=== PATIENT | male | born 1980 | race Caucasian/White ===

== ENCOUNTER 2017-10-14 21:49 | Emergency (ER) | payer OTHER ==
[~2017-10-14] VITALS: Ht 182.9 cm; Wt 113.8 kg
[~2017-10-14 21:49] MED LIST: WARF4TAB PO
[2017-10-14 21:51] VITALS: TEMP 36.8; Ht 182.9 cm; Wt 113.8 kg
[2017-10-14] MEDS ORDERED: SODIUM CHLORIDE 0.9% 1000ML 1,000 ML IV STA (22:05)
[2017-10-14] MEDS ORDERED: OPTIRAY 320 IV PRN (22:15)
[2017-10-14 22:33] LABS: ISTAT CREATININE 0.9 mg/dl (0.6-1.3); ISTAT HEMOGLOBIN 16.3 g/dl (14.0-18.0); ISTAT IONIZED CALCIUM 1.09 mmol/l (1.12-1.32)
[2017-10-14 22:36] LABS: BASO % 0.1 %; BASO ABS # 0.01 K/uL (0-0.2); COMPLETE YES; EOS % 0.5 %; HEMATOCRIT 46.9 % (42-52); IG% 0.2 %; LYMPH ABS # 1.06 K/uL (1.2-3.4); MEAN CELL VOLUME 93.4 fL (80-100); MEAN CORPUSCULAR HEMOGLOBIN 32.1 pg (25-34); MEAN CORPUSCULAR HGB CONC 34.3 g/dl (32-36); MEAN PLATELET VOLUME 9.2 fL (7.4-10.4); NEUT % 71.2 %; PLATELET COUNT 199 K/uL (130-400); RED BLOOD COUNT 5.02 M/uL (4.7-6.1); WHITE BLOOD COUNT 8.16 K/uL (4.8-10.8)
--- NOTE | 2017-10-14 22:36 | DIAGNOSTIC IMAGING REPORT ---
CHEST ONE VIEW PORTABLE HISTORY: 37 years-old Male Chest Pain acute atypical chest pain COMPARISON: Chest and rib radiographs 04/27/2016 TECHNIQUE: Portable upright AP view of the chest FINDINGS: Cardiac silhouette is within normal limits. No pneumothorax, pleural effusion, focal airspace consolidation or overt pulmonary edema. Bones of the chest appear grossly intact. IMPRESSION: No acute cardiopulmonary process. The above report was generated using voice recognition software. It may contain grammatical, syntax or spelling errors. Electronically signed by: Juan J Acuña M.D. 10/14/2017 10:35 PM Dictated Date/Time: 10/14/2017 10:34 PM
[2017-10-14 22:42] LABS: BLOOD UREA NITROGEN 12 mg/dl (7-18); BUN/CREATININE RATIO 12.2 (10-20); CALCIUM 8.9 mg/dl (8.5-10.1); CARBON DIOXIDE 26 mmol/L (21-32); CHLORIDE 101 mmol/L (98-107); CREATININE 0.99 mg/dl (0.60-1.40); GLUCOSE 101 mg/dl (70-99); SODIUM 133 mmol/L (136-145)
--- NOTE | 2017-10-14 22:54 | DIAGNOSTIC IMAGING REPORT ---
(CHEST FOR PE) ANGIO WITH CT DOSE: 703.72 mGy.cm HISTORY: 37 years-old Male presents with acute atypical chest pain TECHNIQUE: Multiple CTA images of the chest were obtained after the intravenous administration of 116 ml Optiray 320. certified hyperbaric technologist reports that the patient experienced nausea and vomiting after injection of the contrast. Coronal and sagittal MIPS were obtained from the axial data set and were submitted for review. A dose lowering technique was utilized adhering to the principles of ALARA. COMPARISON: CT chest 04/03/2010 and 05/05/2009. FINDINGS: CTA: Heart is normal in size without pericardial effusion. The thoracic aorta is normal in both course and caliber without aneurysm or dissection. Imaged great vessels are patent. There is suboptimal opacification of the pulmonary arterial tree secondary to contrast bolus timing. The lobar, segmental and subsegmental branches are not well seen. No central pulmonary embolus identified. CT CHEST: No dominant thyroid nodule. Mildly prominent left axillary lymph node measures 9 mm in short axis, nonspecific. No pathologic mediastinal or hilar adenopathy by CT size criteria. Pleural-parenchymal scarring of the apical posterior segment left upper lobe is redemonstrated, unchanged from comparison. There are additional smaller subsegmental linear pleural-based opacities of the bilateral lungs suggesting areas of atelectasis/scarring. No pneumothorax, pleural effusion or lobar airspace consolidation. Central airways are patent. The graft calcification of the spleen is noted. No acute abnormality of the imaged upper abdomen. Soft tissues are unremarkable. Bones appear intact. IMPRESSION: 1. Suboptimal evaluation of the pulmonary arterial tree secondary to contrast bolus timing. No central pulmonary embolus identified. 2. No lobar airspace consolidation to suggest pneumonia. 3. Pleural parenchymal scarring of the apical posterior segment left upper lobe redemonstrated. The above report was generated using voice recognition software. It may contain grammatical, syntax or spelling errors. Electronically signed by: Juan J Acuña M.D. 10/14/2017 10:52 PM Dictated Date/Time: 10/14/2017 10:45 PM
[2017-10-15 00:04] VITALS: BP 147/89; PULSE 80; O2SAT 98
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
--- NOTE | 2017-10-15 07:13 | DIAGNOSTIC IMAGING REPORT ---
(CHEST FOR PE) ANGIO WITH CT DOSE: 721.39 mGy.cm HISTORY: Chest pain dyspnea TECHNIQUE: Multiaxial CT images of the chest were performed following the intravenous administration of contrast to evaluate the pulmonary arteries. Maximal intensity projection images were also obtained. A dose lowering technique was utilized adhering to the principles of ALARA. COMPARISON STUDY: 10/14/2007 FINDINGS: There is a normal caliber thoracic aorta with no evidence for dissection. There is no evidence for pulmonary embolus. No pleural effusions. No pneumothorax. The liver and spleen are unremarkable. No mediastinal or hilar lymphadenopathy. The central airways are patent. The lungs are clear. Scattered stable atelectatic change. IMPRESSION: No evidence for pulmonary embolus. The above report was generated using voice recognition software. It may contain grammatical, syntax or spelling errors. Electronically signed by: Nathan Finley M.D. 10/15/2017 7:12 AM Dictated Date/Time: 10/15/2017 7:09 AM
== END 2017-10-15 00:06 | disposition home or self-care (01) ==
LOC: C.EDB 21:49 → C.EDA 10-15 00:06
DX: R07.9 Chest pain, unspecified (principal); D68.51 Activated protein C resistance; I10 Essential (primary) hypertension; F17.200 Nicotine dependence, unspecified, uncomplicated; Z86.711 Personal history of pulmonary embolism

== ENCOUNTER → 2017-12-31 | Outpatient (CLI) | payer OTHER | END | disposition home or self-care (01) | LOC: C.LAB 02:05 | DX: Z02.83 Encounter for blood-alcohol and blood-drug test (principal) ==

== ENCOUNTER 2018-02-14 21:43 | Emergency (ER) | payer OTHER ==
[~2018-02-14] VITALS: Ht 182.9 cm; Wt 111.4 kg
[2018-02-14 21:45] VITALS: TEMP 36.7; Ht 182.9 cm; Wt 111.4 kg
[2018-02-14] MEDS ORDERED: LIDODERM (LIDOCAINE) PATCH 5% TD STA (22:00)
--- NOTE | 2018-02-14 22:21 | DIAGNOSTIC IMAGING REPORT ---
R SCAPULA CLINICAL HISTORY: 37 years-old Male presenting with pain. TECHNIQUE: Frontal and transscapular Y views of the right scapula were obtained. COMPARISON: Chest x-ray from 10/14/2017. FINDINGS: Glenohumeral and acromioclavicular joints congruent. No gross evidence of subluxation of the humeral head. The scapula is grossly intact. Clavicle intact. No advanced degenerative change. No radiographic soft tissue abnormality. IMPRESSION: No acute osseous injury. Electronically signed by: Homero Mack M.D. 02/14/2018 10:20 PM Dictated Date/Time: 02/14/2018 10:19 PM
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
[2018-02-14] MEDS ORDERED: LIDO1PAD2 TD (22:30)
[2018-02-14] MEDS ORDERED: [UNRECOGNIZED DRUG - REMARK] PO (22:36)
[2018-02-14] MEDS ORDERED: WARF6TAB PO (22:36)
[2018-02-14 22:55] VITALS: BP 162/90; PULSE 74; O2SAT 95
== END 2018-02-14 22:45 | disposition home or self-care (01) ==
LOC: C.EDB 21:44 → C.EDC 22:45
DX: S40.011A Contusion of right shoulder, initial encounter (principal); X58.XXXA Exposure to other specified factors, initial encounter; Y93.83 Activity, rough housing and horseplay; D68.51 Activated protein C resistance; B19.20 Unspecified viral hepatitis C without hepatic coma; Z79.01 Long term (current) use of anticoagulants; F17.210 Nicotine dependence, cigarettes, uncomplicated